=== PATIENT | female | born 1990 | race Caucasian/White ===

== ENCOUNTER 2016-12-06 16:25 | Emergency (ER) | payer SELFPAY ==
[2016-12-06 15:54] LABS: INFLUENZA A NEG (NEG); INFLUENZA B NEG (NEG)
[~2016-12-06 16:25] MED LIST: ADVIL; ALBUTEROL17 GM INH; ALPRAZOLAM PO; AMOXICILLIN875 MG PO; ANTI ANXIETY MED; ANTI ANXIETY MED PO; BACLOFEN10 MG PO; BACTRIM DS TABL1 TA1 PO; BACTRIM DS TABL1 TAB PO; CIPRO PO; CIPRO XR 500 M500 MG PO; CLARITIN10 MG PO; DICLOFENAC PO; FLAGYL PO; FLOMAX0.4 M1 PO; FLOMAX0.4 MG PO; IBUPROFEN; IBUPROFEN800 MG PO; LORTAB 10-5001 EACH PO; LORTAB 7.5-5001 TAB PO; MACROBID100 MG PO; NAPROSYN500 MG PO; NO MEDICATIONS; NORCO1 TAB 10/3 PO; OMNICEF300 MG PO; OXYCODONE HCL5 M1 PO; PHENERGAN PO; PHENERGAN25 M1 PO; PHENERGAN25 MG PO; PREDNISONE PO; PRENATAL1 TA1 PO; PROMETHAZINE D118 ML PO; ROBAXIN500 MG PO; TESSALON PERLE100 M1 PO; TYLENOL #3 PO; ULTRAM PO; VICODIN 5/500 T1 TAB PO; VOLTAREN75 MG PO; ZITHROMAX PO; ZOFRAN ODT4 MG PO; ZOFRAN PO; ZOLOFT50 MG PO
== END 2016-12-06 17:45 | disposition home or self-care (01) ==
LOC: CED 16:25
PROVIDERS: Emergency Medicine
DX: M43.6 Torticollis (principal); J06.9 Acute upper respiratory infection, unspecified; K21.9 Gastro-esophageal reflux disease without esophagitis; F41.9 Anxiety disorder, unspecified; F32.9 Major depressive disorder, single episode, unspecified; F17.210 Nicotine dependence, cigarettes, uncomplicated; Z87.442 Personal history of urinary calculi; Z88.1 Allergy status to other antibiotic agents; Z91.040 Latex allergy status
CPT/HCPCS: 87651; 87804; 96372; 99283; J1885